=== PATIENT | male | born 1970 | race African-American/Black ===

== ENCOUNTER 2020-01-20 14:10 | Emergency (ER) | payer SELFPAY ==
[~2020-01-20] VITALS: Ht 193 cm; Wt 88.0 kg
[2020-01-20 14:15] VITALS: BP 128/75
[2020-01-20] MEDS ORDERED: LIDOCAINE 1%/EPI 1:100,000 10 ML VIAL IJ ONE (15:00)
[2020-01-20] MEDS ORDERED: BACITRACIN ZINC OINT UDPKT TOP ONE (15:00)
[2020-01-20] MEDS ORDERED: ACETAMINOPHEN 325MG TABLET PO ONE (16:30)
[2020-01-20] MEDS ORDERED: SULFAMETHOXAZOLE/TRIMETHOPRIM 800/160MG TABLET PO ONE (16:30)
[2020-01-20] MEDS ORDERED: CEPHALEXIN 250MG CAPSULE PO ONE (16:30)
== END 2020-01-20 17:07 | disposition home or self-care (01) ==
LOC: ER 14:10
DX: L02.31 Cutaneous abscess of buttock (principal)
CPT/HCPCS: 99284; J3490